=== PATIENT | male | born 1995 | race Caucasian/White ===

== ENCOUNTER 2024-02-03 20:09 | Emergency (ER) | payer SELFPAY ==
[~2024-02-03] VITALS: Ht 190.5 cm; Wt 147.7 kg
[2024-02-03] MEDS ORDERED: Topical Skin Adhesive 1 EACH (0.5 ML) TOP ONE (20:30)
[2024-02-03] MEDS ORDERED: Tdap Vaccine 0.5 ML SYRINGE IM ONE (20:30)
[2024-02-03 20:58] VITALS: BP 131/93
== END 2024-02-03 20:58 | disposition home or self-care (01) ==
LOC: ED 20:09
DX: S01.01XA Laceration without foreign body of scalp, initial encounter (principal); E66.01 Morbid (severe) obesity due to excess calories; Z68.41 Body mass index [BMI] 40.0-44.9, adult; W22.8XXA Striking against or struck by other objects, initial encounter; Y93.39 Activity, other involving climbing, rappelling and jumping off; Y92.89 Other specified places as the place of occurrence of the external cause; Y99.0 Civilian activity done for income or pay
CPT/HCPCS: 90715